=== PATIENT | male | born 1940 | race Caucasian/White ===

== ENCOUNTER → 2016-06-29 | Outpatient (CLI) | payer MEDICARE, OTHER | END | disposition home or self-care (01) | LOC: PCVCIMAG 08:14 | PROVIDERS: ATTEND Internal Medicine Cardiovascular Disease | DX: I10 Essential (primary) hypertension (principal); I25.10 Atherosclerotic heart disease of native coronary artery without angina pectoris; G47.33 Obstructive sleep apnea (adult) (pediatric); I73.9 Peripheral vascular disease, unspecified; I77.9 Disorder of arteries and arterioles, unspecified; I87.2 Venous insufficiency (chronic) (peripheral); E78.00 Pure hypercholesterolemia, unspecified; J44.9 Chronic obstructive pulmonary disease, unspecified; Z96.0 Presence of urogenital implants | CPT/HCPCS: 76770; 93005; 93975; G0463 ==

== ENCOUNTER → 2017-02-05 | Outpatient (CLI) | payer MEDICARE, OTHER ==
--- NOTE | 2017-02-05 11:58 | PCVCIMAG ---
EXAM: BILATERAL RENAL ULTRASOUND AND BILATERAL RENAL DUPLEX INDICATION: Hypertension FINDINGS: Right kidney: Length measures 10.9 cm. No hydronephrosis or extensive renal scarring. Right renal duplex: Adequate technical quality. No sonographic evidence of renal artery stenosis. The aortic to renal artery ratio is 2.2. The renal vein is patent. Left kidney: Length measures 12.1 cm. No hydronephrosis or extensive renal scarring. Left renal duplex: Adequate technical quality. No sonographic evidence of renal artery stenosis. The aortic to renal artery ratio is 2.0. The renal vein is patent. Bladder: No obvious abnormalities. IMPRESSION: No significant renal artery stenosis. No hydronephrosis bilaterally. Previous left renal artery stent maintaining satisfactory patency. LOC:[id number]
--- NOTE | 2017-02-05 12:07 | PCVCIMAG ---
EXAM: BILATERAL LOWER EXTREMITY ARTERIAL DUPLEX INDICATION: Peripheral Arterial Disease. Leg pain. FINDINGS: Right Leg: Satisfactory arterial waveforms in the common femoral and profunda femoral artery. Elevated systolic velocity at the origin of the superficial femoral artery of 268 cm/s consistent with 50-60% stenosis is unchanged. Beyond this a stent is present throughout much of the length of superficial femoral artery and shows good patency. The popliteal artery is patent. The anterior tibial, peroneal, and posterior tibial arteries are patent. Left Leg: Satisfactory arterial waveforms in the common femoral and profunda femoral artery. Moderate velocity elevation mid/distal teller superficial femoral artery of 287 cm/s consistent with 60-70% stenosis. Popliteal artery is patent. The anterior tibial, peroneal, posterior tibial arteries are patent. IMPRESSION: 50-60% stenosis teller proximal right superficial femoral artery. Previous stent throughout the right superficial femoral artery showing good patency. 60-70% stenosis mid/distal teller left superficial femoral artery. LOC:[id number]
== END | disposition home or self-care (01) ==
LOC: PCVCIMAG 09:30
PROVIDERS: ATTEND Internal Medicine Cardiovascular Disease
DX: I70.202 Unspecified atherosclerosis of native arteries of extremities, left leg (principal); I70.291 Other atherosclerosis of native arteries of extremities, right leg; I25.10 Atherosclerotic heart disease of native coronary artery without angina pectoris; I77.9 Disorder of arteries and arterioles, unspecified; I87.2 Venous insufficiency (chronic) (peripheral); J44.9 Chronic obstructive pulmonary disease, unspecified; I12.9 Hypertensive chronic kidney disease with stage 1 through stage 4 chronic kidney disease, or unspecified chronic kidney disease; N18.9 Chronic kidney disease, unspecified; M54.5 Low back pain; G89.29 Other chronic pain; I44.0 Atrioventricular block, first degree; Z87.891 Personal history of nicotine dependence; Z95.828 Presence of other vascular implants and grafts; Z96.0 Presence of urogenital implants; Z88.8 Allergy status to other drugs, medicaments and biological substances; Z79.899 Other long term (current) drug therapy; Z79.82 Long term (current) use of aspirin
CPT/HCPCS: 76770; 80061; 93005; 93925; 93975; G0463

== ENCOUNTER → 2017-08-14 | Outpatient (CLI) | payer MEDICARE, OTHER | END | disposition home or self-care (01) | LOC: PCVCIMAG 13:15 | DX: I65.23 Occlusion and stenosis of bilateral carotid arteries (principal); I25.118 Atherosclerotic heart disease of native coronary artery with other forms of angina pectoris; I10 Essential (primary) hypertension; I73.9 Peripheral vascular disease, unspecified; G47.33 Obstructive sleep apnea (adult) (pediatric); E78.00 Pure hypercholesterolemia, unspecified; R07.89 Other chest pain; R06.02 Shortness of breath; S00.83XA Contusion of other part of head, initial encounter; Z87.891 Personal history of nicotine dependence; Z79.899 Other long term (current) drug therapy; Z79.82 Long term (current) use of aspirin; X58.XXXA Exposure to other specified factors, initial encounter; Y93.89 Activity, other specified; Y92.89 Other specified places as the place of occurrence of the external cause; Y99.8 Other external cause status | CPT/HCPCS: 36415; 80061; 93005; 93880; 93925; G0463 ==

== ENCOUNTER → 2017-08-23 | Outpatient (CLI) | payer MEDICARE, OTHER ==
[~2017-08-23] MED LIST: DIAZEPAM 10 MG TABLET.; EPINEPHrine 1 MG/ML VIAL; EPTIFIBATIDE BOLUS 2,000 MCG/ML 10ML VIAL. IV; HEPARIN SODIUM 5,000 UNIT/ML VIAL for PCVC.; HEPARIN for ARTERIAL LINE 1,500 ML; IODIXANOL 270 MG/ML 100 ML VIAL.; IOHEXOL 350 MG/ML 100 ML VIAL.; IV NORMAL SALINE 1000ML BAG 1,000 ML; LIDOCAINE 1% Multi-Dose 50 ML VIAL.; MIDAZOLAM HCL/PF 2 MG/2 ML VIAL.; ceFAZolin SODIUM 1 GM VIAL; fentaNYL PF VIAL 100 MCG/2 ML VIAL; hydrALAZINE 20 MG/ML VIAL.
== END | disposition home or self-care (01) ==
LOC: PCVCIMAG 07:12
DX: I25.10 Atherosclerotic heart disease of native coronary artery without angina pectoris (principal); I70.213 Atherosclerosis of native arteries of extremities with intermittent claudication, bilateral legs; I10 Essential (primary) hypertension; E11.9 Type 2 diabetes mellitus without complications; J44.9 Chronic obstructive pulmonary disease, unspecified; Z87.891 Personal history of nicotine dependence
CPT/HCPCS: 36252; 37186; 37227; 75716; 93458; 99152; 99153; C1725; C1751; C1757; C1760; C1769; C1876; C1885; C1887; C1894; J0171; J0360; J0690; J1327; J1644; J2250; J3010; J7030; Q9967

== ENCOUNTER → 2017-12-11 | Outpatient (CLI) | payer MEDICARE, OTHER | END | disposition home or self-care (01) | LOC: PCVCIMAG 16:17 | DX: I73.9 Peripheral vascular disease, unspecified (principal); I12.9 Hypertensive chronic kidney disease with stage 1 through stage 4 chronic kidney disease, or unspecified chronic kidney disease; N18.9 Chronic kidney disease, unspecified; I77.9 Disorder of arteries and arterioles, unspecified; I25.10 Atherosclerotic heart disease of native coronary artery without angina pectoris; I87.2 Venous insufficiency (chronic) (peripheral); E78.00 Pure hypercholesterolemia, unspecified; J44.9 Chronic obstructive pulmonary disease, unspecified; Z88.8 Allergy status to other drugs, medicaments and biological substances; Z87.891 Personal history of nicotine dependence; Z79.899 Other long term (current) drug therapy; Z79.82 Long term (current) use of aspirin | CPT/HCPCS: 93923; 93925; G0463 ==

== ENCOUNTER → 2018-06-10 | Outpatient (CLI) | payer MEDICARE, OTHER ==
--- NOTE | 2018-06-10 14:05 | PCVCIMAG ---
APPROVED REPORT Indications Stenosis Risk Factors Hypertension: Hyperlipidemia Surgery/Intervention Endarterectomy: right Doppler Spectral Velocity Analysis PSV / EDVPSV / EDV ECA (R) 178 / 6 cm/sECA (L) 310 / 23 cm/s dICA (R) 71 / 19 cm/sdICA (L) Davon (R) 127 / 25 cm/smICA (L) pICA (R) 155 / 27 cm/spICA (L) 0 / 0 cm/s Bulb (R) 145 / 18 cm/sBulb (L) 0 / 0 cm/s dCCA (R) 112 / 22 cm/sdCCA (L) 84 / 14 cm/s mCCA (R) 92 / 17 cm/smCCA (L) 92 / 11 cm/s Vert (R) 82 / 21 cm/sVert (L) 75 / 0 cm/s ICA/CCA 1.38ICA/CCA 0.00 Basic Measurements Blood Pressure: Pulses: Right Left RightLeft Brachial(Sitting) 130/12wtPr636/62mmHgTemporal Real Time B-Mode Imaging Vert. (R)AntegradeVert. (L)Antegrade Findings The right carotid bulb has moderate plaque. The right proximal internal carotid artery shows <40% stenosis. The right common carotid artery shows <40% stenosis. The right external carotid artery shows <50% stenosis. The left carotid bulb has severe plaque. The left proximal internal carotid artery shows chronic occlusion. The left common carotid artery shows no significant stenosis. The left external carotid artery shows >90% stenosis. Conclusion 1. Right common and internal carotid artery stenoses (<40%) 2. Chronic left internal carotid artery occlusion 3. Antegrade vertebral flow
--- NOTE | 2018-06-10 21:23 | PCVCIMAG ---
EXAM: BILATERAL LOWER EXTREMITY ARTERIAL DUPLEX INDICATION: Peripheral Arterial Disease. Leg pain. FINDINGS: Right Leg: Common femoral and profunda femoral arteries are patent. 50-60% stenosis proximal superficial femoral artery at the proximal margin prior stent. Otherwise superficial femoral artery is patent. Popliteal artery is patent. The anterior tibial, peroneal, and posterior tibial arteries are patent. Left Leg: Mild stenosis common femoral and profunda femoral arteries. 40-50% stenosis proximal and mid portions of superficial femoral artery within prior stent. The popliteal artery is patent. The anterior tibial, peroneal, and posterior tibial arteries are patent. IMPRESSION: 50-60% stenosis proximal right superficial femoral artery within prior stent similar to prior study of November 2017. 40-50% stenosis proximal and mid left superficial femoral artery within prior stent unchanged since prior study. LOC:[id number]
== END | disposition home or self-care (01) ==
LOC: PCVCIMAG 12:44
PROVIDERS: ATTEND Internal Medicine Cardiovascular Disease
DX: I65.23 Occlusion and stenosis of bilateral carotid arteries (principal); I25.10 Atherosclerotic heart disease of native coronary artery without angina pectoris; I10 Essential (primary) hypertension; E78.00 Pure hypercholesterolemia, unspecified; I73.9 Peripheral vascular disease, unspecified; J44.9 Chronic obstructive pulmonary disease, unspecified; G47.33 Obstructive sleep apnea (adult) (pediatric); Z87.891 Personal history of nicotine dependence
CPT/HCPCS: 36415; 80061; 93005; 93880; 93925; G0463

== ENCOUNTER → 2019-01-29 | Outpatient (CLI) | payer MEDICARE, OTHER ==
--- NOTE | 2019-01-29 11:31 | PCVCIMAG ---
EXAM: BILATERAL LOWER EXTREMITY ARTERIAL DUPLEX INDICATION: Peripheral Arterial Disease. Leg pain. FINDINGS: Right Leg: Common femoral profunda femoral arteries are patent. Increased systolic velocity 320 cm/s consistent with 50-60% restenosis proximal superficial femoral artery at the proximal margin of prior stent. Otherwise superficial femoral artery stent is patent. Popliteal artery is patent. The anterior tibial, peroneal, and posterior tibial arteries are patent. Left Leg: Common femoral and profunda femoral artery showing mild stenosis. 50% stenosis proximal bois forte superficial femoral artery and mid bois forte superficial femoral artery not felt be critically flow-limiting. Previous stents proximal and distal superficial femoral artery are patent. Popliteal artery is patent. Anterior and posterior tibial arteries are patent. Mid/distal peroneal artery is occluded. IMPRESSION: 50-60% restenosis proximal right superficial femoral artery proximal margin of prior stent is unchanged. Otherwise right superficial femoral stent maintaining satisfactory patency. 50% stenosis proximal and mid bois forte left superficial femoral artery unchanged since May 2018 study. Incidental note is made of a 1.4 x 2.5 x 4.5 cm left popliteal cyst. Unchanged occlusion mid/distal left peroneal artery. LOC:[id number]
== END | disposition home or self-care (01) ==
LOC: PCVCIMAG 07:52
PROVIDERS: ATTEND Internal Medicine Cardiovascular Disease
DX: I73.9 Peripheral vascular disease, unspecified (principal); I25.10 Atherosclerotic heart disease of native coronary artery without angina pectoris; E78.00 Pure hypercholesterolemia, unspecified; I10 Essential (primary) hypertension; G47.33 Obstructive sleep apnea (adult) (pediatric); I65.23 Occlusion and stenosis of bilateral carotid arteries; J44.9 Chronic obstructive pulmonary disease, unspecified; Z88.8 Allergy status to other drugs, medicaments and biological substances; Z79.899 Other long term (current) drug therapy; Z87.891 Personal history of nicotine dependence
CPT/HCPCS: 36415; 80061; 93005; 93880; 93925; G0463